=== PATIENT | female | born 1995 | race Caucasian/White ===

== ENCOUNTER 2018-03-26 21:48 | Emergency (ER) | payer OTHER ==
--- NOTE | 2018-03-26 22:19 | EDPHY ---
H & P Stated Complaint: Stepped on broken glass, bottom of foot lac, ETOH Time Seen by Provider: 03/26/18 22:05 HPI/ROS: CHIEF COMPLAINT: Stepped on glass HISTORY OF PRESENT ILLNESS: The patient is a 22-year-old female who comes to the emergency department complaining of laceration to her right foot. She states she dropped a glass and then accidentally stepped on a piece. She has a small laceration to the palmar side of her little toe over the mid phalanx. She also has a small abrasion/laceration to her heel with a small piece of glass that she can feel. Severity: Moderate Modifying factors: None REVIEW OF SYSTEMS: Constitutional: denies: chills, fever, recent illness, recent injury EENTM: denies: blurred vision, double vision, nose congestion Respiratory: denies: cough, shortness of breath Cardiac: denies: chest pain, irregular heart rate, lightheadedness, palpitations Gastrointestinal/Abdominal: denies: abdominal pain, diarrhea, nausea, vomiting, blood streaked stools Genitourinary: denies: dysuria, frequency, hematuria, pain Musculoskeletal: denies: joint pain, muscle pain Skin: See HPI Neurological: denies: headache, numbness, paresthesia, tingling, dizziness, weakness Hematologic/Lymphatic: denies: blood clots, easy bleeding, easy bruising Immunologic/allergic: denies: HIV/AIDS, transplant 10 systems reviewed and negative except as noted EXAM: GENERAL: Well-appearing, well-nourished and in no acute distress. HEAD: Atraumatic, normocephalic. EYES: Pupils equal round and reactive to light, extraocular movements intact, sclera anicteric, conjunctiva are normal. ENT: TMs normal, nares patent, oropharynx clear without exudates. Moist mucous membranes. NECK: Normal range of motion, supple without lymphadenopathy or JVD. LUNGS: Breath sounds clear to auscultation bilaterally and equal. No wheezes rales or rhonchi. HEART: Regular rate and rhythm without murmurs, rubs or gallops. ABDOMEN: Soft, nontender, normoactive bowel sounds. No guarding, no rebound. No masses appreciated. BACK: No CVA tenderness, no spinal tenderness, step-offs or deformities EXTREMITIES: Normal range of motion, no pitting or edema. No clubbing or cyanosis. NEUROLOGICAL: Cranial nerves II through XII grossly intact. Normal speech, normal gait. 5/5 strength, normal movement in all extremities, normal sensation , normal reflexes PSYCH: Normal mood, normal affect. SKIN: See lacerations as described above. Laceration on her right little toe is about 1 cm in length but flap-like. The laceration or heel is not suturable. Source: Patient Exam Limitations: No limitations - Personal History LMP (Females 10-55): 15-21 Days Ago Current Tetanus/Diphtheria Vaccine: Yes - Medical/Surgical History Hx Asthma: No Hx Chronic Respiratory Disease: No Hx Diabetes: No Hx Cardiac Disease: No Hx Renal Disease: No Hx Cirrhosis: No Hx Alcoholism: No Hx HIV/AIDS: No Hx Splenectomy or Spleen Trauma: No Other PMH: Depression - Family History Significant Family History: No pertinent family hx - Social History Smoking Status: Never smoked Alcohol Use: Sober Constitutional: Initial Vital Signs Temperature (C) 36.8 C 03/26/18 21:52 Heart Rate 116 H 03/26/18 21:52 Respiratory Rate 20 03/26/18 21:52 Blood Pressure 123/89 H 03/26/18 21:52 O2 Sat (%) 97 03/26/18 21:52 O2 Delivery Mode Room Air Allergies/Adverse Reactions: No Known Allergies Allergy (Unverified 03/26/18 21:53) Home Medications: Medication Instructions Recorded Lexapro 03/26/18 Medical Decision Making - Diagnostics Imaging Results: Imaging Impressions Foot X-Ray 03/26/18 21:58 Impression: Tiny, 1mm, sliver of glass along plantar aspect of heel. Imaging: Discussed imaging studies w/ associate [facility]iologist Procedures: Procedure: Laceration repair. Verbal consent was obtained from the patient. The 1 cm flap-like toe laceration was anesthetized with 1% lidocaine locally infiltrated. The wound was irrigated copiously according to protocol, draped and explored to its base. It was approximately 2 mm deep. There were no deep structures involved. No tendon, nerve, or vascular injury was identified when explored through full range of motion. No foreign body was identified. The wound flap was trimmed. It will not require repair. A dressing was then placed with sterile gauze and bacitracin. Foreign body removal: A small piece of glass was removed from the abrasion and the patient's right heel. This was done with an 11 blade scalpel. No anesthesia required. Patient tolerated procedure well. ED Course/Re-evaluation: The patient had a palpable piece of glass in the small abrasion in her heel. This was removed with an 11 blade. She tolerated this well. The toe laceration was numbed and repaired under typical conditions. She tolerated this well. Differential Diagnosis: Partial list of the Differential diagnosis considered include but were not limited to; foreign body, laceration and although unlikely based on the history and physical exam, I also considered assault, infection. I discussed these differential diagnoses and the plan with the patient as well as the usual and expected course. The patient understands that the diagnosis is provisional and that in medicine we are not always correct and that further workup is often warranted. Usual and customary warnings were given. All of the patient's questions were answered. Departure - Departure Disposition: Home, Routine, Self-Care Clinical Impression: Laceration, Skin foreign body Condition: Fair Instructions: Laceration (ED) Referrals: Charles Sanchez MD [Primary Care Provider] - As per Instructions
[2018-03-26 23:06] VITALS: BP 111/73
== END 2018-03-26 23:05 | disposition home or self-care (01) ==
PROC: 0HCMXZZ Extirpation of Matter from Right Foot Skin, External Approach (ICD-10-PCS; principal; 2018-03-26)
DX: S91.114A Laceration without foreign body of right lesser toe(s) without damage to nail, initial encounter (principal); S91.321A Laceration with foreign body, right foot, initial encounter; F32.9 Major depressive disorder, single episode, unspecified; W25.XXXA Contact with sharp glass, initial encounter; Y92.9 Unspecified place or not applicable; Y93.9 Activity, unspecified; Y99.9 Unspecified external cause status